=== PATIENT | female | born 1985 | race Caucasian/White ===

== ENCOUNTER 2016-12-13 06:17 | Inpatient (IN) | payer MEDICAID ==
[~2016-12-13] VITALS: Ht 157.5 cm; Wt 70.5 kg
[2016-12-13] VITALS (23 sets, daily range): BP systolic 106–141; BP diastolic 60–88; PULSE 78–115; TEMP 97.5–98.2
[2016-12-13 06:53] LABS: BASO # 0.1 (0.0-0.2); BASO % 0.3 % (0.0-2.0); EOS # 0.1 (0.0-0.7); EOS % 0.4 % (0-4.0); GRAN # 15.1 (1.4-6.5); GRAN % 80.8 % (42.2-75.2); LYMPH # 2.4 (1.2-3.4); LYMPH % 12.7 % (20.0-51.0); MEAN CELL VOLUME 86 fl (80.0-100.0); MEAN CORPUSCULAR HGB CONC 34 g/dl (33.0-37.0); MEAN PLATELET VOLUME 10.9 fl (7.4-10.4); MONO % 5.2 % (1.7-9.3); PLATELET COUNT 350 K/mm3 (130-400); RED BLOOD COUNT 4.04 M/mm3 (4.10-5.30); REDCELL DISTRIBUTION WIDTH-CV 13.1 % (11.5-14.5); WHITE BLOOD COUNT 18.6 K/mm3 (4.8-10.8)
[2016-12-13 07:07] LABS: HEMATOCRIT 34.7 % (37.0-47.0); HEMOGLOBIN 11.7 g/dl (12.5-16.0); MEAN CORPUSCULAR HEMOGLOBIN 29 pg (27.0-31.0)
[2016-12-13] MEDS ORDERED: IBU800 M1 PO (09:26)
[2016-12-13] MEDS ORDERED: PERCOCET 325 MG1 TA2 PO (09:27)
[2016-12-14 09:01] VITALS: BP 120/81; PULSE 81; TEMP 97.8
== END 2016-12-14 13:20 | disposition home or self-care (01) | DRG 775 ==
LOC: LDRO 06:17 → LDR 06:25 → OB 11:38
PROVIDERS: Obstetrics & Gynecology
PROC: 10E0XZZ Delivery of Products of Conception, External Approach (ICD-10-PCS; principal; 2016-12-13)
PROC: 0UQMXZZ Repair Vulva, External Approach (ICD-10-PCS; 2016-12-13)
DX: O36.0130 Maternal care for anti-D [Rh] antibodies, third trimester, not applicable or unspecified (principal); O99.334 Smoking (tobacco) complicating childbirth; F17.210 Nicotine dependence, cigarettes, uncomplicated; O70.0 First degree perineal laceration during delivery; Z3A.37 37 weeks gestation of pregnancy; Z37.0 Single live birth
CPT/HCPCS: J2590; J2790; J2795; J7120

== ENCOUNTER 2018-01-05 16:10 | Outpatient (CLI) | payer MEDICAID ==
[~2018-01-05] VITALS: Ht 160 cm; Wt 67.7 kg
[~2018-01-05 16:10] MED LIST: IBU800 M1 PO; PERCOCET 325 MG1 TA2 PO
[2018-01-05 16:27] VITALS: BP 122/80; PULSE 96; TEMP 98.1
[2018-01-05] MEDS ORDERED: PRENATAL MVI (16:29)
== END 2018-01-05 18:06 | disposition home or self-care (01) ==
LOC: LDRO 16:10
DX: O62.2 Other uterine inertia (principal); Z3A.35 35 weeks gestation of pregnancy

== ENCOUNTER 2018-01-11 05:49 | Inpatient (IN) | payer MEDICAID ==
[~2018-01-11] VITALS: Ht 160 cm; Wt 67.7 kg
[2018-01-11] VITALS (21 sets, daily range): BP systolic 112–137; BP diastolic 62–82; PULSE 70–107; TEMP 97.6–98.2
[~2018-01-11 05:49] MED LIST changes: +PRENATAL MVI
[2018-01-11 07:07] LABS: MEAN CELL VOLUME 84 fl (80.0-100.0); MEAN CORPUSCULAR HGB CONC 32 g/dl (33.0-37.0); MEAN PLATELET VOLUME 10.9 fl (7.4-10.4); PLATELET COUNT 390 K/mm3 (130-400); RED BLOOD COUNT 4.35 M/mm3 (4.10-5.30); REDCELL DISTRIBUTION WIDTH-CV 13.2 % (11.5-14.5)
[2018-01-11 07:09] LABS: HEMATOCRIT 36.6 % (37.0-47.0); HEMOGLOBIN 11.8 g/dl (12.5-16.0); MEAN CORPUSCULAR HEMOGLOBIN 27 pg (27.0-31.0)
[2018-01-11 08:07] LABS: BAND 4 % (0-10); BASOPHIL 1 % (0-2); EOSINOPHIL 1 % (0-4); LYMPHOCYTE 19 % (20.0-51.0); NEUTROPHILS 73 % (42.0-75.2); PLATELET ESTIMATE NORMAL (NORMAL)
[2018-01-12 03:58] VITALS: BP 112/72; PULSE 75
[2018-01-12 07:20] VITALS: BP 125/71; PULSE 89; TEMP 98.8
[2018-01-12] MEDS ORDERED: IBU600 MG PO (09:19)
== END 2018-01-12 11:20 | disposition home or self-care (01) | DRG 775 ==
LOC: LDRO 05:49 → OB 06:00 → LDR 06:00 → OB 11:15
PROVIDERS: Obstetrics & Gynecology
PROC: 10E0XZZ Delivery of Products of Conception, External Approach (ICD-10-PCS; principal; 2018-01-11)
DX: O36.0130 Maternal care for anti-D [Rh] antibodies, third trimester, not applicable or unspecified (principal); F17.210 Nicotine dependence, cigarettes, uncomplicated; O69.3XX0 Labor and delivery complicated by short cord, not applicable or unspecified; O99.334 Smoking (tobacco) complicating childbirth; Z3A.37 37 weeks gestation of pregnancy; Z37.0 Single live birth
CPT/HCPCS: J2590; J2791; J7120

== ENCOUNTER 2020-06-15 12:13 | Emergency (ER) | payer MEDICAID ==
[~2020-06-15] VITALS: Ht 160 cm; Wt 42.3 kg
[~2020-06-15 12:13] MED LIST changes: +IBU600 MG PO
[2020-06-15 12:14] VITALS: TEMP 97.6
[2020-06-15 12:49] LABS: BASO % 0.4 % (0.0-2.0); EOS # 0.1 (0.0-0.7); EOS % 0.8 % (0-4.0); GRAN # 4.8 (1.4-6.5); GRAN % 65.3 % (42.2-75.2); HEMATOCRIT 38.1 % (37.0-47.0); HEMOGLOBIN 12.7 g/dl (12.5-16.0); LYMPH # 1.7 (1.2-3.4); MEAN CELL VOLUME 87 fl (80.0-100.0); MEAN CORPUSCULAR HEMOGLOBIN 29 pg (27.0-31.0); MEAN CORPUSCULAR HGB CONC 33 g/dl (33.0-37.0); MEAN PLATELET VOLUME 10.4 fl (7.4-10.4); MONO # 0.8 (0.1-0.6); MONO % 10.2 % (1.7-9.3); PLATELET COUNT 306 K/mm3 (130-400); REDCELL DISTRIBUTION WIDTH-CV 13.5 % (11.5-14.5)
[2020-06-15 12:59] LABS: ALBUMIN 4.2 gm/dL (3.5-5.0); BILIRUBIN,TOTAL 1.3 mg/dL (0.0-1.0); C-REACTIVE PROTEIN 1.1 mg/dL (0.0-0.9); CREATININE, serum 0.54 (0.52-1.25); POTASSIUM 3.5 mmol/L (3.4-5.0)
[2020-06-15 13:44] LABS: COLLECTION METHOD CLEAN CATCH
[2020-06-15 13:53] LABS: MUCOUS Present /lpf; PH 5 (5-8); URINE APPEARANCE Hazy; URINE BACTERIA Rare /hpf; URINE BILIRUBIN Negative (NEGATIVE); URINE BLOOD Negative (NEGATIVE); URINE COLOR Amber; URINE GLUCOSE Negative (NEGATIVE); URINE KETONE 1+ (NEGATIVE); URINE LEUKOCYTE ESTERASE 1+ (NEGATIVE); URINE NITRATE Negative (NEGATIVE); URINE PROTEIN(semi-quant) Negative (NEGATIVE); URINE RBC 0-2 /hpf; URINE UROBILINOGEN Negative (NEGATIVE)
[2020-06-15 14:04] LABS: TRICYCLIC ANTIDEPRESS URINE NEGATIVE
[2020-06-15] MEDS ORDERED: ZOFRAN ODT4 MG PO (17:15)
[2020-06-15] MEDS ORDERED: NORCO 325 MG-51 TAB PO (17:15)
[2020-06-15 17:42] VITALS: BP 116/81; PULSE 91
== END 2020-06-15 17:41 | disposition home or self-care (01) ==
LOC: COL.ER 12:13
PROVIDERS: Physician Assistant
DX: K81.9 Cholecystitis, unspecified (principal)
CPT/HCPCS: J2405; J7030; Q9967

== ENCOUNTER 2022-02-03 22:03 | Emergency (ER) | payer MEDICAID ==
[~2022-02-03] VITALS: Ht 160 cm; Wt 45.5 kg
[~2022-02-03 22:03] MED LIST changes: +NORCO 325 MG-51 TAB PO; +ZOFRAN ODT4 MG PO
[2022-02-03 22:17] VITALS: TEMP 98.7
[2022-02-03 22:36] LABS: COLLECTION METHOD CLEAN CATCH
[2022-02-03 22:40] LABS: BASO # 0.1 K/mm3 (0.0-0.2); BASO % 0.6 % (0.0-2.0); EOS # 0.2 K/mm3 (0.0-0.7); EOS % 1.5 % (0.0-4.0); GRAN # 12.6 K/mm3 (1.4-6.5); GRAN % 79.1 % (42.2-75.2); HEMATOCRIT 38.8 % (37.0-47.0); HEMOGLOBIN 13.4 g/dl (12.5-16.0); LYMPH % 12.4 % (20.0-51.0); MEAN CELL VOLUME 88 fl (80.0-100.0); MEAN CORPUSCULAR HEMOGLOBIN 31 pg (27-31); MEAN CORPUSCULAR HGB CONC 35 g/dl (33.0-37.0); MEAN PLATELET VOLUME 9.9 fl (7.4-10.4); MONO % 6.1 % (1.7-9.3); PLATELET COUNT 349 K/mm3 (130-400); RED BLOOD COUNT 4.39 M/mm3 (4.10-5.30); REDCELL DISTRIBUTION WIDTH-CV 12.8 % (11.5-14.5)
[2022-02-03 22:44] LABS: MUCOUS Present (NOT PRESENT); PH 5 (5-8); URINE APPEARANCE Hazy (CLEAR/HAZY); URINE BACTERIA None Seen /hpf (NONE SEEN); URINE BILIRUBIN Negative (NEGATIVE); URINE BLOOD 1+ (NEGATIVE); URINE COLOR Amber (YELLOW); URINE GLUCOSE Negative (NEGATIVE); URINE KETONE Trace (NEGATIVE); URINE LEUKOCYTE ESTERASE 1+ (NEGATIVE); URINE NITRATE Negative (NEGATIVE); URINE PROTEIN(semi-quant) 1+ (NEGATIVE)
[2022-02-03 22:56] LABS: ALBUMIN 4.1 gm/dL (3.5-5.0); BILIRUBIN,TOTAL 0.7 mg/dL (0.2-1.2); CALCIUM 9.1 mg/dL (8.4-10.2); CREATININE, serum 0.92 mg/dL (0.57-1.11); POTASSIUM 3.2 mmol/L (3.5-4.5); TOTAL PROTEIN 6.9 gm/dL (6.2-8.1)
[2022-02-04 02:04] VITALS: BP 114/80; PULSE 79
== END 2022-02-04 02:04 | disposition home or self-care (01) ==
LOC: COL.ER 22:03
PROVIDERS: Emergency Medicine
DX: K80.20 Calculus of gallbladder without cholecystitis without obstruction (principal); E87.6 Hypokalemia; D72.829 Elevated white blood cell count, unspecified; Z32.02 Encounter for pregnancy test, result negative
CPT/HCPCS: J1885; J7030